=== PATIENT | female | born 1990 | race Caucasian/White ===

== ENCOUNTER 2016-07-31 18:54 | Emergency (ER) | payer OTHER ==
[2016-07-31] MEDS ORDERED: Lidocaine/EPINEPHrine/Tetracaine Soln 1 ML ONE (19:14)
[2016-07-31] MEDS ORDERED: Lidocaine 1% 20 ML MDV ONE (19:17)
[2016-07-31] MEDS ORDERED: Lidocaine 1% 20 ML MDV INJECT ONE (19:22)
[2016-07-31] MEDS ORDERED: Lidocaine/EPINEPHrine/Tetracaine Soln 1 ML TOP ONE (19:22)
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
[2016-07-31] MEDS ORDERED: Diphtheria,Pertussis(Acell),Tetanus Vaccine 0.5 ML Syringe IM ONE (20:59)
[2016-08-01 01:09] VITALS: BP 115/70
== END 2016-07-31 21:11 | disposition home or self-care (01) ==
LOC: MW.ED 18:54
DX: S31.41XA Laceration without foreign body of vagina and vulva, initial encounter (principal); Z90.49 Acquired absence of other specified parts of digestive tract; Z23 Encounter for immunization; Z79.2 Long term (current) use of antibiotics; Z79.899 Other long term (current) drug therapy; Z88.1 Allergy status to other antibiotic agents; Z88.2 Allergy status to sulfonamides; Z88.8 Allergy status to other drugs, medicaments and biological substances; V29.9XXA Motorcycle rider (driver) (passenger) injured in unspecified traffic accident, initial encounter; Y92.410 Unspecified street and highway as the place of occurrence of the external cause
CPT/HCPCS: 12001; 90471; 90715; 99283; 99283-25

== ENCOUNTER 2019-07-06 15:44 | Emergency (ER) | payer OTHER ==
[2019-07-06] MEDS ORDERED: Sodium Chloride 0.9% 1,000 ML IV ONE (16:14)
--- NOTE | 2019-07-06 16:27 | EDM.PDOC ---
ED HPI GENERAL MEDICAL PROBLEM - General Chief Complaint: LINE LEAD Problem Stated Complaint: VOMITING Time Seen by Provider: 07/06/19 16:22 Source of Information: Reports: Patient History Limitations: Reports: No Limitations - History of Present Illness INITIAL COMMENTS - FREE TEXT/NARRATIVE: This is a 29-year-old female presents to the emergency room chief complaint of hyperemesis gravidarum. Patient is 10 weeks states that all her pregnancies she has had problem with holding down fluids. 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) - Related Data Allergies Allergy/AdvReac Type Severity Reaction Status Date / Time doxycycline Allergy Rash Verified 07/06/19 16:00 ondansetron HCl [From Zofran] Allergy Rash Verified 07/06/19 16:00 sulfamethoxazole Allergy Hives Verified 07/06/19 16:00 [From Bactrim] trimethoprim [From Bactrim] Allergy Hives Verified 07/06/19 16:00 Home Meds: Home Meds Levothyroxine [Synthroid] 50 mcg PO DAILY 06/15/15 [History] Metoclopramide [Reglan] 0 mg PO Q6HR PRN 07/06/19 [History] Past Medical History HEENT History: Reports: Other (See Below) (h/o tonsillitis) Gastrointestinal History: Reports: None Genitourinary History: Reports: None LINE LEAD History: Reports: , Other (See Below) (septate uterus) Endocrine/Metabolic History: Reports: Hypothyroidism, Obesity/BMI 30+ Dermatologic History: Reports: None - Past Surgical History Head Surgeries/Procedures: Reports: None HEENT Surgical History: Reports: Oral Surgery Other HEENT Surgeries/Procedures: wisdom teeth extraction GI Surgical History: Reports: Appendectomy Female Surgical History: Reports: Section (x2) Other Female Surgeries/Procedures: c/section x2, surgery for vaginal septum Endocrine Surgical History: Reports: None Social & Family History - Family History Family Medical History: Noncontributory - Caffeine Use Caffeine Use: Reports: Coffee, Energy Drinks, Soda ED ROS GENERAL - Review of Systems Review Of Systems: See Below Constitutional: Reports: Malaise, Weakness HEENT: Reports: No Symptoms Respiratory: Reports: No Symptoms Cardiovascular: Reports: No Symptoms Endocrine: Reports: No Symptoms GI/Abdominal: Reports: Vomiting : Reports: No Symptoms Musculoskeletal: Reports: No Symptoms Skin: Reports: No Symptoms Neurological: Reports: No Symptoms Psychiatric: Reports: No Symptoms Hematologic/Lymphatic: Reports: No Symptoms Immunologic: Reports: No Symptoms ED EXAM - Physical Exam Exam: See Below Exam Limited By: No Limitations General Appearance: Alert, WD/WN, No Apparent Distress Eye Exam: Bilateral Eye: Normal Fundi, Normal Inspection Ears: Normal External Exam, Normal Canal Nose: Normal Inspection, Normal Mucosa, No Blood Throat/Mouth: Normal Inspection, Normal Lips, Normal Teeth, Normal Gums, Normal Oropharynx, Normal Voice, No Airway Compromise Head: Atraumatic, Normocephalic Neck: Normal Inspection, Supple, Non-Tender, Full Range of Motion Respiratory/Chest: No Respiratory Distress, Lungs Clear, Normal Breath Sounds, No Accessory Muscle Use, Chest Non-Tender Cardiovascular: Normal Peripheral Pulses, Regular Rate, Rhythm, No Edema, No JVD , No Murmur, No Rub GI/Abdominal Exam: Normal Bowel Sounds, Soft, Non-Tender, No Organomegaly, No Distention, No Abnormal Bruit, No Mass, Pelvis Stable Rectal Exam: Deferred Back Exam: Normal Inspection, Full Range of Motion Extremities: Normal Inspection, Normal Range of Motion, Non-Tender, No Pedal Edema, Normal Capillary Refill Neurological: Alert, Oriented, CN II-XII Intact, Normal Cognition, Normal Reflexes, No Motor/Sensory Deficits Psychiatric: Normal Affect, Normal Mood Skin Exam: Warm, Dry, Intact, Normal Color, No Rash Lymphatic: No Adenopathy Course - Vital Signs Text/Narrative:: This is a 29-year-old female who presents the emergency room with a chief complaint of vomiting for 3 days unable to keep anything down. Patient has a history of hyperemesis gravidarum. Patient has been given IV fluids in the emergency room labs are normal. Patient is to follow-up with her primary care physician she already has Reglan for the vomiting. Patient has been given multivitamins and thiamine in the emergency room her graph Assesment : Hyperemesis gravidarum Last Recorded V/S: Last Vital Signs Temp 98.2 F 07/06/19 15:55 Pulse 92 07/06/19 15:55 Resp 17 07/06/19 15:55 BP 123/83 07/06/19 15:55 Pulse Ox 97 07/06/19 15:55 - Orders/Labs/Meds Orders: Active Orders 24 hr Category Date Time Status MVI, Adult with Vitamin K [Infuvite Adult] 10 ml Med 07/06/19 17:05 Ordered Thiamine [Vitamin B-1] 100 mg Folic Acid 1 mg Sodium Chloride 0.9% [Normal Saline] 1,000 ml IV ONETIME Medication Orders Multivitamins/Minerals 10 ml/Thiamine HCl 100 mg/ Folic Acid 1 mg/ Sodium Chloride 1,011.2 mls @ 500 mls/hr IV ONETIME ONE Stop: 07/06/19 19:06 Last Admin: 07/06/19 17:40 Dose: 500 mls/hr Labs: Laboratory Tests 07/06/19 07/06/19 Range/Units 16:35 16:35 WBC 10.04 (4.0-11.0) K/uL RBC 4.76 (4.30-5.90) M/uL Hgb 13.5 (12.0-16.0) g/dL Hct 40.0 (36.0-46.0) % MCV 84.0 (80.0-98.0) fL MCH 28.4 (27.0-32.0) pg MCHC 33.8 (31.0-37.0) g/dL RDW Std Deviation 41.7 (28.0-62.0) fl RDW Coeff of Cristofer 14 (11.0-15.0) % Plt Count 308 (150-400) K/uL MPV 9.00 (7.40-12.00) fL Neut % (Auto) 72.2 (48.0-80.0) % Lymph % (Auto) 18.9 (16.0-40.0) % [place] % (Auto) 6.8 (0.0-15.0) % Eos % (Auto) 1.5 (0.0-7.0) % Baso % (Auto) 0.6 (0.0-1.5) % Neut # (Auto) 7.3 H (1.4-5.7) K/uL Lymph # (Auto) 1.9 (0.6-2.4) K/uL [place] # (Auto) 0.7 (0.0-0.8) K/uL Eos # (Auto) 0.2 (0.0-0.7) K/uL Baso # (Auto) 0.1 (0.0-0.1) K/uL Nucleated RBC % 0.0 /100WBC Nucleated RBCs # 0 K/uL Sodium 135 L (136-145) mmol/L Potassium 3.5 (3.5-5.1) mmol/L Chloride 100 (98-107) mmol/L Carbon Dioxide 25.1 (21.0-32.0) mmol/L BUN 7 (7.0-18.0) mg/dL Creatinine 0.7 (0.6-1.0) mg/dL Est Cr Clr Drug Dosing 85.94 mL/min Estimated GFR (MDRD) > 60.0 ml/min Glucose 82 (74-106) mg/dL Calcium 8.9 (8.5-10.1) mg/dL Total Bilirubin 0.5 (0.2-1.0) mg/dL AST 16 (15-37) IU/L ALT 13 L (14-63) IU/L Alkaline Phosphatase 61 (46-116) U/L Total Protein 7.1 (6.4-8.2) g/dL Albumin 3.3 L (3.4-5.0) g/dL Globulin 3.8 (2.6-4.0) g/dL Albumin/Globulin Ratio 0.9 (0.9-1.6) Meds: Medications Generic Name Dose Route Start Last Admin Trade Name Freq PRN Reason Stop Dose Admin Multivitamins/Minerals 10 ml/ 1,011.2 mls @ 500 mls/hr 07/06/19 17:05 17:40 Thiamine HCl 100 mg/ Folic IV 07/06/19 19:06 500 mls/hr Acid 1 mg/ Sodium Chloride ONETIME ONE Administration Discontinued Medications Generic Name Dose Route Start Last Admin Trade Name Freq PRN Reason Stop Dose Admin Sodium Chloride 1,000 mls @ 1,000 mls/hr 07/06/19 16:14 07/06/19 16:27 Normal Saline IV 07/06/19 17:13 1,000 mls/hr .Bolus ONE Administration Departure - Departure Time of Disposition: 18:22 Disposition: Home, Self-Care 01 Condition: Good Clinical Impression: Hyperemesis gravidarum - Discharge Information Instructions: Hyperemesis Gravidarum Referrals: Xochilt Manzano MD [Primary Care Provider] - Forms: ED Department Discharge Sepsis Event Note - Evaluation Sepsis Screening Result: No Definite Risk - Focused Exam Vital Signs: Vital Signs Temp Pulse Resp BP Pulse Ox 07/06/19 15:55 98.2 F 92 17 123/83 97 Date Exam was Performed: 07/06/19 Time Exam was Performed: 18:17 - My Orders Last 24 Hours: My Active Orders 07/06/19 17:05 MVI, Adult with Vitamin K [Infuvite Adult] 10 ml Thiamine [Vitamin B-1] 100 mg Folic Acid 1 mg Sodium Chloride 0.9% [Normal Saline] 1,000 ml IV ONETIME - Assessment/Plan Last 24 Hours: My Active Orders 07/06/19 17:05 MVI, Adult with Vitamin K [Infuvite Adult] 10 ml Thiamine [Vitamin B-1] 100 mg Folic Acid 1 mg Sodium Chloride 0.9% [Normal Saline] 1,000 ml IV ONETIME
[2019-07-06] MEDS ORDERED: MVI, Adult with Vitamin K 10 ML, Thiamine 100 MG, Folic Acid 1 MG in Sodium Chloride 0.... IV ONE ×4 (17:05)
[2019-07-06 17:18] LABS: BLOOD UREA NITROGEN,BUN 7 mg/dL (7.0-18.0); CARBON DIOXIDE,CO2 25.1 mmol/L (21.0-32.0); CHLORIDE,CL 100 mmol/L (98-107); GLUCOSE RANDOM 82 mg/dL (74-106); POTASSIUM,K 3.5 mmol/L (3.5-5.1); SODIUM,NA 135 mmol/L (136-145)
[2019-07-06 21:56] VITALS: BP 103/61; PULSE 79
== END 2019-07-06 20:34 | disposition home or self-care (01) ==
LOC: MW.ED 15:44
DX: O21.0 Mild hyperemesis gravidarum (principal); O99.281 Endocrine, nutritional and metabolic diseases complicating pregnancy, first trimester; E03.9 Hypothyroidism, unspecified; O99.211 Obesity complicating pregnancy, first trimester; Z68.31 Body mass index [BMI] 31.0-31.9, adult; Z88.1 Allergy status to other antibiotic agents; Z88.2 Allergy status to sulfonamides; Z88.8 Allergy status to other drugs, medicaments and biological substances; Z3A.10 10 weeks gestation of pregnancy
CPT/HCPCS: 36415; 80053; 85025; 96361; 96365; 96366; 99284; J3411; J7030; 99282

== ENCOUNTER 2019-12-27 16:55 | Inpatient (IN) | payer OTHER ==
[2019-12-27] MEDS ORDERED: Lactated Ringers 1,000 ML IV SCH ×3 (17:45→18:30)
[2019-12-27] MEDS ORDERED: Betamethasone Acetate/Betamethasone Sod Phosphate 30 MG/5 ML MDV ONE (18:06)
[2019-12-27] MEDS ORDERED: Betamethasone Acetate/Betamethasone Sod Phosphate 30 MG/5 ML MDV IM ONE (18:09)
[2019-12-27] MEDS ORDERED: Sodium Chloride 0.9% 10 ML SDV IV PRN ×2 (18:15→18:16)
[2019-12-27] MEDS ORDERED: Sodium Chloride 0.9% 10 ML Syringe FLUSH PRN ×2 (18:15→18:16)
[2019-12-27] MEDS ORDERED: Citric Acid/Sodium Citrate Solution 30 ML Cup PO ONE ×2 (18:15→18:16)
[2019-12-27] MEDS ORDERED: Oxytocin/0.9 % Sodium Chloride 30 UNIT/500 ML BAG IV SCH ×2 (18:15→18:30)
[2019-12-27] MEDS ORDERED: Sodium Chloride 0.9% 2.5 ML Syringe FLUSH PRN ×2 (18:15→18:16)
[2019-12-27] MEDS ORDERED: ceFAZolin 2 GM in Premix Bag 1 BAG IV ONE (18:16)
--- NOTE | 2019-12-27 18:16 | PCM.LDHP ---
L&D History of Present Illness - General Date of Service: 12/27/19 Admit Problem/Dx: Patient Status Order with Admit Dx/Problem 12/27/19 16:50 Patient Status [ADT] Routine Admission Diagnosis/Problem Admission Diagnosis/Problem 12/27/19 18:26 labor Source of Information: Patient History Limitations: Reports: No Limitations - History of Present Illness Present Illness Comments:: 29 year old at 34w6d (AYLA 02/01/2020 by LMP) presented to labor and delivery in the early evening of 12/27/2019 with contractions. Patient has a history of sections x2 and her last delivery was at 35wga. States that she started having contractions at about 0930 this morning and they were q6-8 minutes just prior to arriving at L&D. has been complicated by a complete septate uterus and hypothyroidism. Denies leaking fluid or vaginal bleeding. Reports good movement. - Related Data Allergies/Adverse Reactions: Allergies Allergy/AdvReac Type Severity Reaction Status Date / Time doxycycline Allergy Rash Verified 12/27/19 18:08 levothyroxine Allergy Rash Verified 12/27/19 18:08 ondansetron HCl [From Zofran] Allergy Rash Verified 12/27/19 18:08 sulfamethoxazole Allergy Hives Verified 12/27/19 18:08 [From Bactrim] trimethoprim [From Bactrim] Allergy Hives Verified 12/27/19 18:08 Home Medications: Home Meds Levothyroxine [Synthroid] 50 mcg PO DAILY 06/15/15 [History] Metoclopramide [Reglan] 0 mg PO Q6HR PRN 07/06/19 [History] Hydroxyprogesterone Caproat/Pf [Gail 275 mg/1.1 ml Autoinjct] 1 ea SUBCUT WEEKLY 11/23/19 [History] Levothyroxine [Synthroid] 1 tab PO DAILY 11/23/19 [History] Pnv No.95/Ferrous Fum/Folic AC [ Vitamin Tablet] 1 tab PO DAILY 11/23/19 [History] Past Medical History HEENT History: Reports: Other (See Below) (h/o tonsillitis) Gastrointestinal History: Reports: None Genitourinary History: Reports: None 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: , Other (See Below) (septate uterus) Other OB/BYN History: 2 miscarriages Endocrine/Metabolic History: Reports: Hypothyroidism, Obesity/BMI 30+ Dermatologic History: Reports: None - Past Surgical History Head Surgeries/Procedures: Reports: None HEENT Surgical History: Reports: Oral Surgery Other HEENT Surgeries/Procedures: wisdom teeth extraction GI Surgical History: Reports: Appendectomy Female Surgical History: Reports: Section (x2) Other Female Surgeries/Procedures: c/section x2, surgery for vaginal septum Endocrine Surgical History: Reports: None Social & Family History - Family History Family Medical History: Noncontributory - Caffeine Use Caffeine Use: Reports: Coffee, Energy Drinks, Soda H&P Review of Systems - Review of Systems: Review Of Systems: See Below General: Reports: No Symptoms HEENT: Reports: No Symptoms Pulmonary: Reports: No Symptoms Cardiovascular: Reports: No Symptoms Gastrointestinal: Reports: Abdominal Pain () Genitourinary: Reports: No Symptoms Skin: Reports: No Symptoms Psychiatric: Reports: No Symptoms Neurological: Reports: No Symptoms Hematologic/Lymphatic: Reports: No Symptoms Immunologic: Reports: No Symptoms L&D Exam - Exam Exam: See Below - Vital Signs Weight: 161 lb - OB Specific Contraction Intensity: Mild to Moderate Movement: Active Heart Tones: Present Heart Tones per Min: 135 Heart Rate (FHR) Variability: Moderate (6-25 bmp) Presentation: Vertex - Garcia Score Garcia Score Cervix Position: Anterior Garcia Score Consistency: Soft Garcia Score Effacement: >80% Garcia Score Dilation: > 5 cm Garcia Score 's Station: -2 Garcia Score Total: 11 - Exam General: Alert, Oriented Lungs: Normal Respiratory Effort Cardiovascular: Regular Rate GI/Abdominal Exam: Soft, Non-Tender Rectal Exam: Deferred Genitourinary: Other (SVE: 5-6/80/-2, vertex) Extremities: Normal Inspection Skin: Warm, Dry, Intact Neurological: Cranial Nerves Intact Psychiatric: Alert, Normal Affect - Patient Data Lab Results Last 24 hrs: Laboratory Results - last 24 hr 12/27/19 Range/Units 17:55 WBC 12.54 H (4.0-11.0) K/uL RBC 4.68 (4.30-5.90) M/uL Hgb 12.7 (12.0-16.0) g/dL Hct 38.7 (36.0-46.0) % MCV 82.7 (80.0-98.0) fL MCH 27.1 (27.0-32.0) pg MCHC 32.8 (31.0-37.0) g/dL RDW Std Deviation 40.9 (28.0-62.0) fl RDW Coeff of Cristofer 14 (11.0-15.0) % Plt Count 269 (150-400) K/uL MPV 10.50 (7.40-12.00) fL Nucleated RBC % 0.0 /100WBC Nucleated RBCs # 0 K/uL Result Diagrams: 12/27/19 17:55 Problem List Initiated/Reviewed/Updated: Yes Orders Last 24hrs: Active Orders 24 hr Category Date Time Status Patient Status [ADT] Routine ADT 12/27/19 16:50 Active Non Stress Test [RC] PER UNIT ROUTINE Care 12/27/19 17:14 Active Up ad Jasmyn [RC] ASDIRECTED Care 12/27/19 17:14 Active Vaginal Exam [RC] Click to Edit Care 12/27/19 17:14 Active Vital Signs [RC] PER UNIT ROUTINE Care 12/27/19 17:14 Active CORONAVIRUS COVID-19 PCR PHL Stat Lab 12/27/19 18:13 Ordered TYPE AND SCREEN [BBK] Routine Lab 12/27/19 17:55 Received Lactated Ringers [Ringers, Lactated] 1,000 ml Med 12/27/19 17:45 Active IV ASDIRECTED Resuscitation Status Routine Resus Stat 12/27/19 17:14 Ordered Medication Orders Lactated Ringer's (Ringers, Lactated) 1,000 mls @ 999 mls/hr IV ASDIRECTED MICHAELA Last Admin: 12/27/19 17:50 Dose: 999 mls/hr Documented by: ARIELLA Assessment/Plan Comment:: 29 year old at 34w6d (AYLA 02/01/2020 by LMP) with labor and advanced dilation labor * SVE 5-6/80/-2, vertex. Intact. * Patient artemio q1-3 minutes, mild to palpation. * History of section x2, will need repeat section. Due to adva nced dilation and continued contractions, patient not a candidate for transfer to higher level of care for infant. Discussed diagnosis of active labor with patient and advised for repeat section this evening. Risks of the procedure discussed including infection, bleeding with rare need for blood transfusion or hysterectomy, injury to surrounding structures with need for additional procedures and remote risk of maternal/ . Questions elicited and answered. Discussed case with greenhouse florist, anesthesia and special education professor. Plan to administer betamethasone injection x1 prior to delivery. GBS unknown, lab collected upon arrival. Prophylactic antibiotics ordered. COVID-19 testing performed and pending. Patient denies recent symptoms. heart tones reassuring. Plan to proceed with repeat lower transverse section at this time.
[2019-12-27] MEDS ORDERED: Azithromycin 500 MG in Sodium Chloride 0.9% 250 ML IV ONE (18:25)
[2019-12-27] MEDS ORDERED: Propofol 200 MG/20 ML SDV ONE (18:31)
[2019-12-27] MEDS ORDERED: Oxytocin 10 Units/1 ML SDV ONE (18:38)
[2019-12-27] MEDS ORDERED: ePHEDrine 50 MG/ML SDV ONE (18:38)
[2019-12-27] MEDS ORDERED: Morphine PF 10 MG/10 ML SDV ONE (18:41)
--- NOTE | 2019-12-27 19:03 | PCM.PREANE ---
Preanesthetic Assessment - Anesthesia/Transfusion/Family Hx Anesthesia History: Prior Anesthesia Without Reaction Family History of Anesthesia Reaction: No Transfusion History: No Prior Transfusion(s) Intubation History: Unknown - Review of Systems General: No Symptoms Pulmonary: No Symptoms Cardiovascular: No Symptoms Gastrointestinal: Abdominal Pain Neurological: No Symptoms Other: Reports: None - Physical Assessment NPO Status Date: 12/27/19 Height: 4 ft 11 in Weight: 73.028 kg ASA Class: 2 Mental Status: Alert & Oriented x3 Airway Class: Mallampati = 2 Dentition: Reports: Normal Dentition ROM/Head Extension: Full Lungs: Clear to Auscultation, Normal Respiratory Effort Cardiovascular: Regular Rate, Regular Rhythm - Lab Values: Laboratory Last Values WBC 12.54 K/uL (4.0-11.0) H 12/27/19 17:55 RBC 4.68 M/uL (4.30-5.90) 12/27/19 17:55 Hgb 12.7 g/dL (12.0-16.0) 12/27/19 17:55 Hct 38.7 % (36.0-46.0) 12/27/19 17:55 MCV 82.7 fL (80.0-98.0) 12/27/19 17:55 MCH 27.1 pg (27.0-32.0) 12/27/19 17:55 MCHC 32.8 g/dL (31.0-37.0) 12/27/19 17:55 RDW Std Deviation 40.9 fl (28.0-62.0) 12/27/19 17:55 RDW Coeff of Cristofer 14 % (11.0-15.0) 12/27/19 17:55 Plt Count 269 K/uL (150-400) 12/27/19 17:55 MPV 10.50 fL (7.40-12.00) 12/27/19 17:55 Nucleated RBC % 0.0 /100WBC 12/27/19 17:55 Nucleated RBCs # 0 K/uL 12/27/19 17:55 Blood Type A POSITIVE 12/27/19 17:55 Antibody Screen NEGATIVE 12/27/19 17:55 - Allergies Allergies/Adverse Reactions: Allergies Allergy/AdvReac Type Severity Reaction Status Date / Time doxycycline Allergy Rash Verified 12/27/19 18:08 levothyroxine Allergy Rash Verified 12/27/19 18:08 ondansetron HCl [From Zofran] Allergy Rash Verified 12/27/19 18:08 sulfamethoxazole Allergy Hives Verified 12/27/19 18:08 [From Bactrim] trimethoprim [From Bactrim] Allergy Hives Verified 12/27/19 18:08 - Blood Blood Available: No - Anesthesia Plan Pre-Op Medication Ordered: None - Acknowledgements Anesthesia Type Planned: Spinal Pt an Appropriate Candidate for the Planned Anesthesia: Yes Alternatives and Risks of Anesthesia Discussed w Pt/Guardian: Yes Pt/Guardian Understands and Agrees with Anesthesia Plan: Yes PreAnesthesia Questionnaire - Past Health History Medical/Surgical History: Denies Medical/Surgical History HEENT History: Reports: Other (See Below) (h/o tonsillitis) Gastrointestinal History: Reports: None Genitourinary History: Reports: None 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: , Other (See Below) (septate uterus) Other OB/BYN History: 2 miscarriages Endocrine/Metabolic History: Reports: Hypothyroidism, Obesity/BMI 30+ Dermatologic History: Reports: None - Past Surgical History Head Surgeries/Procedures: Reports: None HEENT Surgical History: Reports: Oral Surgery Other HEENT Surgeries/Procedures: wisdom teeth extraction GI Surgical History: Reports: Appendectomy Female Surgical History: Reports: Section (x2) Other Female Surgeries/Procedures: c/section x2, surgery for vaginal septum Endocrine Surgical History: Reports: None - HOME MEDS Home Medications: Home Meds Levothyroxine [Synthroid] 50 mcg PO DAILY 06/15/15 [History] Metoclopramide [Reglan] 0 mg PO Q6HR PRN 07/06/19 [History] Hydroxyprogesterone Caproat/Pf [Brogan 275 mg/1.1 ml Autoinjct] 1 ea SUBCUT WEEKLY 11/23/19 [History] Levothyroxine [Synthroid] 1 tab PO DAILY 11/23/19 [History] Pnv No.95/Ferrous Fum/Folic AC [ Vitamin Tablet] 1 tab PO DAILY 11/23/19 [History] - CURRENT (IN HOUSE) MEDS Current Meds: Current Medications Lactated Ringer's (Ringers, Lactated) 1,000 mls @ 999 mls/hr IV ASDIRECTED MICHAELA Last Admin: 12/27/19 17:50 Dose: 999 mls/hr Documented by: Lactated Ringer's (Ringers, Lactated) 1,000 mls @ 500 mls/hr IV BOLUS MICHAELA Oxytocin/Sodium Chloride (Oxytocin 30 Unit/500 Ml-Ns) 30 unit in 500 mls @ 250 mls/hr IV TITRATE MICHAELA Lactated Ringer's (Ringers, Lactated) 1,000 mls @ 500 mls/hr IV BOLUS MICHAELA Last Admin: 12/27/19 18:59 Dose: 500 mls/hr Documented by: Oxytocin/Sodium Chloride (Oxytocin 30 Unit/500 Ml-Ns) 30 unit in 500 mls @ 250 mls/hr IV TITRATE MICHAELA Azithromycin 500 mg/ Sodium (Chloride) 250 mls @ 250 mls/hr IV ONETIME ONE Stop: 12/27/19 19:24 Sodium Chloride (Saline Flush) 10 ml FLUSH ASDIRECTED PRN PRN Reason: Keep Vein Open Sodium Chloride (Saline Flush) 2.5 ml FLUSH ASDIRECTED PRN PRN Reason: Keep Vein Open Sodium Chloride (Normal Saline) 10 ml IV ASDIRECTED PRN PRN Reason: IV Use Sodium Chloride (Saline Flush) 10 ml FLUSH ASDIRECTED PRN PRN Reason: Keep Vein Open Sodium Chloride (Saline Flush) 2.5 ml FLUSH ASDIRECTED PRN PRN Reason: Keep Vein Open Sodium Chloride (Normal Saline) 10 ml IV ASDIRECTED PRN PRN Reason: IV Use Discontinued Medications Betamethasone Acet/Betameth SodPhos (Celestone Soluspan 6 Mg/Ml) Confirm Administered Dose 30 mg .ROUTE .STK-MED ONE Stop: 12/27/19 18:07 Betamethasone Acet/Betameth SodPhos (Celestone Soluspan 6 Mg/Ml) 12 mg IM ONETIME ONE Stop: 12/27/19 18:10 Last Admin: 12/27/19 18:22 Dose: 12 mg Documented by: Citric Acid/Sodium Citrate (Bicitra Solution) 30 ml PO ONETIME ONE Stop: 12/27/19 18:16 Citric Acid/Sodium Citrate (Bicitra Solution) 30 ml PO ONETIME ONE Stop: 12/27/19 18:17 Ephedrine Sulfate (Ephedrine Sulfate) Confirm Administered Dose 100 mg .ROUTE .STK-MED ONE Stop: 12/27/19 18:39 Cefazolin Sodium/Dextrose 2 gm (/ Premix) 50 mls @ 100 mls/hr IV ONETIME ONE Stop: 12/27/19 18:45 Acetaminophen (Ofirmev) Confirm Administered Dose 100 mls @ as directed .ROUTE .STK-MED ONE Stop: 12/27/19 18:30 Morphine Sulfate (Duramorph Pf) Confirm Administered Dose 10 mg .ROUTE .STK-MED ONE Stop: 12/27/19 18:42 Oxytocin (Pitocin) Confirm Administered Dose 30 unit .ROUTE .STK-MED ONE Stop: 12/27/19 18:39 Propofol (Diprivan 20 Ml) Confirm Administered Dose 200 mg .ROUTE .STK-MED ONE Stop: 12/27/19 18:32
[2019-12-27] MEDS ORDERED: fentaNYL 100 MCG/2 ML SDV IVPUSH PRN (19:04)
[2019-12-27] MEDS ORDERED: Nalbuphine 10 MG/1 ML Vial IVPUSH PRN (19:04)
[2019-12-27] MEDS ORDERED: Acetaminophen/oxyCODONE 325-5 MG Tab PO PRN (19:04)
[2019-12-27] MEDS ORDERED: Octyl 2-Cyanoacrylate 1 Tube ONE (20:14)
[2019-12-27] MEDS ORDERED: diphenhydrAMINE 50 MG/ML SDV IVPUSH PRN (20:38)
[2019-12-27] MEDS ORDERED: Tranexamic Acid 1,000 MG in Sodium Chloride 0.9% 100 ML IV PRN (20:38)
[2019-12-27] MEDS ORDERED: Lanolin 100% Cream 7 GM Tube TOP PRN (20:38)
[2019-12-27] MEDS ORDERED: Oxytocin 10 Units/1 ML SDV IM PRN (20:38)
[2019-12-27] MEDS ORDERED: Misoprostol 200 MCG Tab RECTAL PRN (20:38)
[2019-12-27] MEDS ORDERED: Simethicone 80 MG Tab.Chew PO PRN (20:38)
[2019-12-27] MEDS ORDERED: Bisacodyl 10 MG Supp RECTAL PRN (20:38)
[2019-12-27] MEDS ORDERED: Methylergonovine 0.2 MG/1 ML Amp IM PRN (20:38)
[2019-12-27] MEDS ORDERED: Metoclopramide 10 MG/2 ML SDV IVPUSH PRN (20:43)
--- NOTE | 2019-12-27 20:44 | PCM.OPNOTE ---
- General Post-Op/Procedure Note Date of Surgery/Procedure: 12/27/19 Operative Procedure(s): Repeat lower transverse section Findings: Normal appearing male in cephalic presentation. Clear amniotic fluid. APGARs 8/8. Weight 2570 grams. Complete uterine septum down to cervix. Normal appearing bilateral fallopian tubes and ovaries. Pre Op Diagnosis: 1. 34w6d intrauterine . 2. labor with advanced dilation. 3. Complete uterine septum. 4. Previous history of section x2. 5. Hypothyroidism Post-Op Diagnosis: Same Anesthesia Technique: Spinal Primary Surgeon: Mariama Ryder Anesthesia Provider: Froy Alejandro Split Fluid Replacement, Intraop: 1,000 (crystalloid) Output, Urine Amount: 175 (clear urine at the end of procedure) EBL in mLs: 500 Complications: None known Condition: Good Free Text/Narrative:: Intake & Output 12/27/19 12/27/19 12/27/19 06:59 14:59 22:59 Output Total 150 Balance -150
--- NOTE | 2019-12-27 21:09 | PCM.POSTAN ---
POST ANESTHESIA ASSESSMENT - MENTAL STATUS Mental Status: Alert - RESPIRATORY Respiratory Status: Respiratory Rate WNL - CARDIOVASCULAR CV Status: Pulse Rate WNL - GASTROINTESTINAL GI Status: No Symptoms - PAIN Pain Score: 0 (Block regressing) - POST OP HYDRATION Hydration Status: Adequate & Stable - OBSERVATIONS Free Text/Narrative:: Doing well. VSS. No problems noted.
[2019-12-27] MEDS: Docusate Sodium 100 MG Cap PO SCH (21:22)
[2019-12-27] MEDS: Ketorolac 30 MG/ML SDV IVPUSH SCH (21:42)
[2019-12-27] MEDS: Lactated Ringers 1,000 ML IV SCH (22:24)
[2019-12-27] MEDS: Acetaminophen/HYDROcodone 325-5 MG Tab PO PRN (23:22)
--- NOTE | 2019-12-27 23:37 | OR ---
SURGEON: MARIAMA VU MD DATE OF PROCEDURE: 12/27/2019 PREOPERATIVE DIAGNOSES: 1. A 34-week 6-day intrauterine . 2. labor with advanced dilation. 3. Complete uterine septum. 4. Previous history of sections x2. 5. Hypothyroidism. POSTOPERATIVE DIAGNOSES: 1. A 34-week 6-day intrauterine . 2. labor with advanced dilation. 3. Complete uterine septum. 4. Previous history of sections x2. 5. Hypothyroidism. PROCEDURE: Repeat lower transverse section. PRIMARY SURGEON: Mariama Vu MD ANESTHESIA: Spinal. COMPLICATIONS: None known. ESTIMATED BLOOD LOSS: 500 mL. INTRAVENOUS FLUIDS: 1000 mL of crystalloid intraoperative. The patient received a 1000 mL bolus prior to the procedure. URINE OUTPUT: 175 mL of clear urine at the end of the procedure. INDICATIONS: A 29-year-old 5, para 1-1-2-2, at 34 weeks and 6 days, presented to Labor and Delivery with complaints of contractions throughout the day. Upon cervical exam, the cervix was noted to be 5 to 6 cm dilated, 80% effaced, and -2 station with the fetus in a vertex presentation. The patient was noted to be artemio every 1 to 3 minutes and in active labor. The patient had a previous history of sections x2. FINDINGS: A normal-appearing male infant, cephalic presentation, clear amniotic fluid, scores 8 and 8, weight 2570 g; complete uterine septum down to the cervix; and normal-appearing bilateral fallopian tubes and ovaries. PROCEDURE IN DETAIL: The patient was taken to the operating, where epidural anesthesia was found to be adequate. She was prepped and draped in the normal sterile fashion in the dorsal supine position with a leftward tilt. The patient's previous surgical Pfannenstiel scar was excised and incision carried out to the underlying layer of fascia, which was incised in the midline. The fascial incision was then extended bilaterally with Haque scissors. The superior aspect of the fascial incision was then grasped with Roberto clamps, elevated, and dissected off the rectus muscles with Stephanie. The inferior aspect of the fascial incision was grasped with Kochers and in a likewise manner was elevated and dissected off with Mayos. The peritoneum was then entered digitally and extended with good visualization of the bladder. A large Jayson O-Ring was then inserted into the abdominal cavity. A uterine incision was created in a transverse fashion in the lower uterine segment with a scalpel and extended digitally. The amniotic sac was artificially ruptured with an Allis clamp. Clear fluid was noted. The 's head readily delivered atraumatically. Nose and mouth were suctioned with a bulb. After a delay, the cord was clamped and cut, and handed off to the waiting nursing staff along with Dr. Helena Cordero, life consultant, who attended the delivery. Cord gases were obtained. The placenta was then expressed and the uterus exteriorized in the abdomen and cleared of all clots and debris. Findings were noted as above. The uterine incision was then repaired in a running locked fashion with 0 Monocryl. A second suture of the same was used to imbricate the incision. Excellent hemostasis was noted. Irrigation of the abdominal cavity was then performed. The uterus was then returned to the abdomen. Gutters were cleared of all clots and debris. The Jayson O device was then removed. The peritoneum and rectus muscles were then loosely reapproximated in a running fashion with 3-0 Vicryl. The fascia was then closed with 0 Vicryl in a running fashion. The incision was irrigated, and hemostasis was assured. The subcutaneous tissue was closed with 3-0 plain gut. The skin was closed with 3-0 Vicryl on a Niall needle along with Dermabond glue. Sponge, lap, and needle counts were correct x2. 2 g of Ancef was given prior to the procedure. The patient was taken to the Labor and Delivery room for recovery in stable condition. As of this time, plan for a transfer of the infant was made due to increased requirement of oxygen. The life consultant coordinating with the NICU team for transfer at this time. ELISHA MINA /[id number] REED
[2019-12-28] MEDS: Ketorolac 30 MG/ML SDV IVPUSH SCH ×4 (04:20→22:15)
[2019-12-28] MEDS: Lactated Ringers 1,000 ML IV SCH (04:21)
--- NOTE | 2019-12-28 07:45 | PCM48HPAN ---
Post Anesthesia Note - EVALUATION WITHIN 48HRS OF ANESTHETIC Vital Signs in Normal Range: Yes Patient Participated in Evaluation: Yes Respiratory Function Stable: Yes Airway Patent: Yes Cardiovascular Function Stable: Yes Hydration Status Stable: Yes Pain Control Satisfactory: Yes Nausea and Vomiting Control Satisfactory: Yes Mental Status Recovered: Yes Vital Signs: Last Vital Signs Temp 36.1 C 12/28/19 04:00 Pulse 61 12/28/19 06:00 Resp 15 12/28/19 06:00 BP 115/64 12/28/19 04:00 Pulse Ox 94 L 12/28/19 06:00
--- NOTE | 2019-12-28 08:52 | PCM.PNPP ---
- General Info Date of Service: 12/28/19 Functional Status: Reports: Pain Controlled, Tolerating Diet, Ambulating, Urinating - Review of Systems General: Reports: No Symptoms HEENT: Reports: No Symptoms Pulmonary: Reports: No Symptoms Cardiovascular: Reports: No Symptoms Gastrointestinal: Reports: No Symptoms Genitourinary: Reports: No Symptoms Musculoskeletal: Reports: No Symptoms Skin: Reports: No Symptoms Neurological: Reports: No Symptoms Psychiatric: Reports: No Symptoms - Patient Data Vital Signs - Most Recent: Last Vital Signs Temp 36.1 C 12/28/19 04:00 Pulse 61 12/28/19 06:00 Resp 15 12/28/19 07:00 BP 115/64 12/28/19 04:00 Pulse Ox 94 L 12/28/19 07:00 Weight - Most Recent: 161 lb I&O - Last 24 Hours: Intake & Output 12/27/19 12/28/19 12/28/19 22:59 06:59 14:59 Intake Total 1000 Output Total 350 1400 Balance 650 -1400 Lab Results - Last 24 Hours: Laboratory Results - last 24 hr 12/27/19 12/27/19 12/27/19 Range/Units 17:55 17:55 18:10 WBC 12.54 H (4.0-11.0) K/uL RBC 4.68 (4.30-5.90) M/uL Hgb 12.7 (12.0-16.0) g/dL Hct 38.7 (36.0-46.0) % MCV 82.7 (80.0-98.0) fL MCH 27.1 (27.0-32.0) pg MCHC 32.8 (31.0-37.0) g/dL RDW Std Deviation 40.9 (28.0-62.0) fl RDW Coeff of Cristofer 14 (11.0-15.0) % Plt Count 269 (150-400) K/uL MPV 10.50 (7.40-12.00) fL Nucleated RBC % 0.0 /100WBC Nucleated RBCs # 0 K/uL SARS-CoV-2 RNA (JANINE) NEGATIVE (NEGATIVE) Blood Type A POSITIVE Antibody Screen NEGATIVE 12/28/19 Range/Units 05:48 WBC (4.0-11.0) K/uL RBC (4.30-5.90) M/uL Hgb 11.4 L (12.0-16.0) g/dL Hct 35.2 L (36.0-46.0) % MCV (80.0-98.0) fL MCH (27.0-32.0) pg MCHC (31.0-37.0) g/dL RDW Std Deviation (28.0-62.0) fl RDW Coeff of Cristofer (11.0-15.0) % Plt Count (150-400) K/uL MPV (7.40-12.00) fL Nucleated RBC % /100WBC Nucleated RBCs # K/uL SARS-CoV-2 RNA (JANINE) (NEGATIVE) Blood Type Antibody Screen Med Orders - Current: Current Medications Hydrocodone Bitart/Acetaminophen ([place] 325-5 Mg) 1 tab PO Q4H PRN PRN Reason: Pain (moderate 4-6) Last Admin: 12/27/19 23:22 Dose: 1 tab Documented by: Bisacodyl (Dulcolax) 10 mg RECTAL ONETIME PRN PRN Reason: Constipation Diphenhydramine HCl (Benadryl) 25 mg IVPUSH Q6H PRN PRN Reason: Itching or Nausea Docusate Sodium (Colace) 100 mg PO BID [facility] Last Admin: 12/27/19 21:22 Dose: Not Given Documented by: Emollient Ointment (Lansinoh Hpa) 0 gm TOP ASDIRECTED PRN PRN Reason: Sore Nipples Fentanyl (Sublimaze) 50 mcg IVPUSH Q5M PRN PRN Reason: Pain (severe 7-10) Stop: 12/28/19 19:04 Lactated Ringer's (Ringers, Lactated) 1,000 mls @ 999 mls/hr IV ASDIRECTED [facility] Last Admin: 12/27/19 17:50 Dose: 999 mls/hr Documented by: Lactated Ringer's (Ringers, Lactated) 1,000 mls @ 500 mls/hr IV BOLUS [facility] Oxytocin/Sodium Chloride (Oxytocin 30 Unit/500 Ml-Ns) 30 unit in 500 mls @ 250 mls/hr IV TITRATE MICHAELA Lactated Ringer's (Ringers, Lactated) 1,000 mls @ 500 mls/hr IV BOLUS [facility] Last Admin: 12/27/19 18:59 Dose: 500 mls/hr Documented by: Oxytocin/Sodium Chloride (Oxytocin 30 Unit/500 Ml-Ns) 30 unit in 500 mls @ 250 mls/hr IV TITRATE [facility] Lactated Ringer's (Ringers, Lactated) 1,000 mls @ 125 mls/hr IV ASDIRECTED MICHAELA Last Admin: 12/28/19 04:21 Dose: 125 mls/hr Documented by: Tranexamic Acid 1,000 mg/ (Sodium Chloride) 110 mls @ 660 mls/hr IV ONETIME PRN PRN Reason: Bleeding Ibuprofen (Motrin) 800 mg PO Q8H PRN PRN Reason: mild pain or fever Ketorolac Tromethamine (Toradol) 30 mg IVPUSH Q6H [facility] Stop: 12/28/19 21:31 Last Admin: 12/28/19 04:20 Dose: 30 mg Documented by: Methylergonovine Maleate (Methergine) 0.2 mg IM ONETIME PRN PRN Reason: Excessive Vaginal Bleeding Metoclopramide HCl (Reglan) 10 mg IVPUSH Q6H PRN PRN Reason: Nausea/Vomiting Misoprostol (Cytotec) 1,000 mcg RECTAL ONETIME PRN PRN Reason: excessive bleeding Nalbuphine HCl (Nubain) 2.5 mg IVPUSH Q3H PRN PRN Reason: Pruritis Stop: 12/28/19 19:04 Oxycodone/Acetaminophen (Percocet 325-5 Mg) 1 tab PO ONETIME PRN PRN Reason: Pain (moderate 4-6) Oxytocin (Pitocin) 10 unit IM ASDIRECTED PRN PRN Reason: Excessive Vaginal Bleeding Simethicone (Simethicone) 80 mg PO Q4H PRN PRN Reason: Gas Last Admin: 12/28/19 02:29 Dose: 80 mg Documented by: Sodium Chloride (Saline Flush) 10 ml FLUSH ASDIRECTED PRN PRN Reason: Keep Vein Open Sodium Chloride (Saline Flush) 2.5 ml FLUSH ASDIRECTED PRN PRN Reason: Keep Vein Open Sodium Chloride (Normal Saline) 10 ml IV ASDIRECTED PRN PRN Reason: IV Use Sodium Chloride (Saline Flush) 10 ml FLUSH ASDIRECTED PRN PRN Reason: Keep Vein Open Sodium Chloride (Saline Flush) 2.5 ml FLUSH ASDIRECTED PRN PRN Reason: Keep Vein Open Sodium Chloride (Normal Saline) 10 ml IV ASDIRECTED PRN PRN Reason: IV Use Discontinued Medications Betamethasone Acet/Betameth SodPhos (Celestone Soluspan 6 Mg/Ml) Confirm Administered Dose 30 mg .ROUTE .STK-MED ONE Stop: 12/27/19 18:07 Last Admin: 12/27/19 21:29 Dose: Not Given Documented by: Betamethasone Acet/Betameth SodPhos (Celestone Soluspan 6 Mg/Ml) 12 mg IM ONETIME ONE Stop: 12/27/19 18:10 Last Admin: 12/27/19 18:22 Dose: 12 mg Documented by: Citric Acid/Sodium Citrate (Bicitra Solution) 30 ml PO ONETIME ONE Stop: 12/27/19 18:16 Citric Acid/Sodium Citrate (Bicitra Solution) 30 ml PO ONETIME ONE Stop: 12/27/19 18:17 Ephedrine Sulfate (Ephedrine Sulfate) Confirm Administered Dose 100 mg .ROUTE .STK-MED ONE Stop: 12/27/19 18:39 Cefazolin Sodium/Dextrose 2 gm (/ Premix) 50 mls @ 100 mls/hr IV ONETIME ONE Stop: 12/27/19 18:45 Last Admin: 12/27/19 21:29 Dose: Not Given Documented by: Azithromycin 500 mg/ Sodium (Chloride) 250 mls @ 250 mls/hr IV ONETIME ONE Stop: 12/27/19 19:24 Last Admin: 12/27/19 21:34 Dose: Not Given Documented by: Acetaminophen (Ofirmev) Confirm Administered Dose 100 mls @ as directed .ROUTE .STK-MED ONE Stop: 12/27/19 18:30 Last Admin: 12/27/19 21:29 Dose: Not Given Documented by: Morphine Sulfate (Duramorph Pf) Confirm Administered Dose 10 mg .ROUTE .STK-MED ONE Stop: 12/27/19 18:42 Octyl Cyanoacrylate (Dermabond Advance) Confirm Administered Dose 1 applic .ROUTE .STK-MED ONE Stop: 12/27/19 20:15 Oxytocin (Pitocin) Confirm Administered Dose 30 unit .ROUTE .STK-MED ONE Stop: 12/27/19 18:39 Propofol (Diprivan 20 Ml) Confirm Administered Dose 200 mg .ROUTE .STK-MED ONE Stop: 12/27/19 18:32 - Infant Interaction Infant Disposition, : Not Applicable - Recovery Exam Fundal Tone: Firm Fundal Level: At Umbilicus Fundal Placement: Midline Lochia Amount: Scant Lochia Color: Rubra/Red Perineum Description: Intact, Minimal Bruising/Swelling Episiotomy/Laceration: None Bladder Status: Indwelling Catheter in Place Urinary Elimination: Indwelling Catheter - Exam General: Alert, Oriented, Cooperative, No Acute Distress HEENT: Pupils Equal, Pupils Reactive Neck: Supple, Trachea Midline, No JVD Lungs: Normal Respiratory Effort GI/Abdominal Exam: Soft, Non-Tender, No Organomegaly, No Distention Extremities: Normal Inspection, Normal Range of Motion, Non-Tender, No Pedal Edema Skin: Warm, Dry, Intact Wound/Incisions: Dressing Dry and Intact Neurological: No New Focal Deficit Psy/Mental Status: Alert, Normal Affect, Normal Mood - Problem List Review Problem List Initiated/Reviewed/Updated: Yes - Assessment Assessment:: 29 year old POD1 s/p repeat LTCS due to labor. Stable and recovering well. - Plan Plan:: - vitals stable Hgb 11.4 today, bleeding light, no s/s of anemia Baby in NICU in [place] Plan to remove green this AM Anticipate discharge POD2
[2019-12-28] MEDS: Docusate Sodium 100 MG Cap PO SCH ×2 (09:26→21:41)
[2019-12-29] MEDS ORDERED: Ibuprofen 800 MG Tab PO PRN (03:30)
[2019-12-29 08:59] VITALS: BP 128/81; PULSE 86
--- NOTE | 2019-12-29 09:29 | PCM.PNPP ---
- General Info Date of Service: 12/29/19 Functional Status: Reports: Pain Controlled, Tolerating Diet, Ambulating, Urinating - Review of Systems General: Reports: No Symptoms HEENT: Reports: No Symptoms Pulmonary: Reports: No Symptoms Cardiovascular: Reports: No Symptoms Gastrointestinal: Reports: No Symptoms Genitourinary: Reports: No Symptoms Musculoskeletal: Reports: No Symptoms Skin: Reports: No Symptoms Neurological: Reports: No Symptoms Psychiatric: Reports: No Symptoms - General Info Date of Service: 12/29/19 - Patient Data Vital Signs - Most Recent: Last Vital Signs Temp 36.7 C 12/29/19 07:45 Pulse 86 12/29/19 07:45 Resp 16 12/29/19 07:45 BP 128/81 12/29/19 07:45 Pulse Ox 95 12/29/19 07:45 Weight - Most Recent: 73.028 kg I&O - Last 24 Hours: Intake & Output 12/28/19 12/29/19 12/29/19 22:59 06:59 14:59 Output Total 1550 Balance -1550 Med Orders - Current: Current Medications Hydrocodone Bitart/Acetaminophen ([place] 325-5 Mg) 1 tab PO Q4H PRN PRN Reason: Pain (moderate 4-6) Last Admin: 12/27/19 23:22 Dose: 1 tab Documented by: Bisacodyl (Dulcolax) 10 mg RECTAL ONETIME PRN PRN Reason: Constipation Diphenhydramine HCl (Benadryl) 25 mg IVPUSH Q6H PRN PRN Reason: Itching or Nausea Docusate Sodium (Colace) 100 mg PO BID [facility] Last Admin: 12/28/19 21:41 Dose: 100 mg Documented by: Emollient Ointment (Lansinoh Hpa) 0 gm TOP ASDIRECTED PRN PRN Reason: Sore Nipples Lactated Ringer's (Ringers, Lactated) 1,000 mls @ 999 mls/hr IV ASDIRECTED [facility] Last Admin: 12/27/19 17:50 Dose: 999 mls/hr Documented by: Lactated Ringer's (Ringers, Lactated) 1,000 mls @ 500 mls/hr IV BOLUS [facility] Oxytocin/Sodium Chloride (Oxytocin 30 Unit/500 Ml-Ns) 30 unit in 500 mls @ 250 mls/hr IV TITRATE MICHAELA Lactated Ringer's (Ringers, Lactated) 1,000 mls @ 500 mls/hr IV BOLUS MICHAELA Last Admin: 12/27/19 18:59 Dose: 500 mls/hr Documented by: Oxytocin/Sodium Chloride (Oxytocin 30 Unit/500 Ml-Ns) 30 unit in 500 mls @ 250 mls/hr IV TITRATE MICHAELA Lactated Ringer's (Ringers, Lactated) 1,000 mls @ 125 mls/hr IV ASDIRECTED MICHAELA Last Admin: 12/28/19 04:21 Dose: 125 mls/hr Documented by: Tranexamic Acid 1,000 mg/ (Sodium Chloride) 110 mls @ 660 mls/hr IV ONETIME PRN PRN Reason: Bleeding Ibuprofen (Motrin) 800 mg PO Q8H PRN PRN Reason: mild pain or fever Last Admin: 12/29/19 04:44 Dose: 800 mg Documented by: Methylergonovine Maleate (Methergine) 0.2 mg IM ONETIME PRN PRN Reason: Excessive Vaginal Bleeding Metoclopramide HCl (Reglan) 10 mg IVPUSH Q6H PRN PRN Reason: Nausea/Vomiting Misoprostol (Cytotec) 1,000 mcg RECTAL ONETIME PRN PRN Reason: excessive bleeding Oxycodone/Acetaminophen (Percocet 325-5 Mg) 1 tab PO ONETIME PRN PRN Reason: Pain (moderate 4-6) Oxytocin (Pitocin) 10 unit IM ASDIRECTED PRN PRN Reason: Excessive Vaginal Bleeding Simethicone (Simethicone) 80 mg PO Q4H PRN PRN Reason: Gas Last Admin: 12/28/19 02:29 Dose: 80 mg Documented by: Sodium Chloride (Saline Flush) 10 ml FLUSH ASDIRECTED PRN PRN Reason: Keep Vein Open Sodium Chloride (Saline Flush) 2.5 ml FLUSH ASDIRECTED PRN PRN Reason: Keep Vein Open Sodium Chloride (Normal Saline) 10 ml IV ASDIRECTED PRN PRN Reason: IV Use Sodium Chloride (Saline Flush) 10 ml FLUSH ASDIRECTED PRN PRN Reason: Keep Vein Open Sodium Chloride (Saline Flush) 2.5 ml FLUSH ASDIRECTED PRN PRN Reason: Keep Vein Open Sodium Chloride (Normal Saline) 10 ml IV ASDIRECTED PRN PRN Reason: IV Use Discontinued Medications Betamethasone Acet/Betameth SodPhos (Celestone Soluspan 6 Mg/Ml) Confirm Administered Dose 30 mg .ROUTE .STK-MED ONE Stop: 12/27/19 18:07 Last Admin: 12/27/19 21:29 Dose: Not Given Documented by: Betamethasone Acet/Betameth SodPhos (Celestone Soluspan 6 Mg/Ml) 12 mg IM ONETIME ONE Stop: 12/27/19 18:10 Last Admin: 12/27/19 18:22 Dose: 12 mg Documented by: Citric Acid/Sodium Citrate (Bicitra Solution) 30 ml PO ONETIME ONE Stop: 12/27/19 18:16 Citric Acid/Sodium Citrate (Bicitra Solution) 30 ml PO ONETIME ONE Stop: 12/27/19 18:17 Ephedrine Sulfate (Ephedrine Sulfate) Confirm Administered Dose 100 mg .ROUTE .STK-MED ONE Stop: 12/27/19 18:39 Fentanyl (Sublimaze) 50 mcg IVPUSH Q5M PRN PRN Reason: Pain (severe 7-10) Stop: 12/28/19 19:04 Cefazolin Sodium/Dextrose 2 gm (/ Premix) 50 mls @ 100 mls/hr IV ONETIME ONE Stop: 12/27/19 18:45 Last Admin: 12/27/19 21:29 Dose: Not Given Documented by: Azithromycin 500 mg/ Sodium (Chloride) 250 mls @ 250 mls/hr IV ONETIME ONE Stop: 12/27/19 19:24 Last Admin: 12/27/19 21:34 Dose: Not Given Documented by: Acetaminophen (Ofirmev) Confirm Administered Dose 100 mls @ as directed .ROUTE .STK-MED ONE Stop: 12/27/19 18:30 Last Admin: 12/27/19 21:29 Dose: Not Given Documented by: Ketorolac Tromethamine (Toradol) 30 mg IVPUSH Q6H MICHAELA Stop: 12/28/19 21:31 Last Admin: 12/28/19 22:15 Dose: 30 mg Documented by: Morphine Sulfate (Duramorph Pf) Confirm Administered Dose 10 mg .ROUTE .STK-MED ONE Stop: 12/27/19 18:42 Nalbuphine HCl (Nubain) 2.5 mg IVPUSH Q3H PRN PRN Reason: Pruritis Stop: 12/28/19 19:04 Octyl Cyanoacrylate (Dermabond Advance) Confirm Administered Dose 1 applic .ROUTE .STK-MED ONE Stop: 12/27/19 20:15 Oxytocin (Pitocin) Confirm Administered Dose 30 unit .ROUTE .STK-MED ONE Stop: 12/27/19 18:39 Propofol (Diprivan 20 Ml) Confirm Administered Dose 200 mg .ROUTE .STK-MED ONE Stop: 12/27/19 18:32 - Interaction Infant Disposition, : Not Applicable Infant Feeding: Other (see below) (baby in NICU in [place], planning to bottle feed.) - Recovery Exam Fundal Tone: Firm Fundal Level: At Umbilicus Fundal Placement: Midline Lochia Amount: Scant Lochia Color: Rubra/Red Perineum Description: Intact, Minimal Bruising/Swelling Episiotomy/Laceration: None Bladder Status: Voiding Urinary Elimination: Voided - Exam General: Alert, Oriented Lungs: Normal Respiratory Effort GI/Abdominal Exam: Soft, Non-Tender, No Distention Extremities: Normal Inspection, No Pedal Edema Wound/Incisions: Healing Well Neurological: No New Focal Deficit - Problem List Review Problem List Initiated/Reviewed/Updated: Yes - Assessment Assessment:: 29 year old POD2 s/p repeat LTCS due to labor. Pain is well controlled, baby is stable in NICU in [place]. She would like to be discharged to home today and will travel to [place] tomorrow to see baby. - Plan Plan:: -Discharge today. Discharge instructions reviewed.
[2019-12-29] MEDS: Acetaminophen/HYDROcodone 325-5 MG Tab PO PRN (10:13)
[2019-12-29] MEDS: Docusate Sodium 100 MG Cap PO SCH (10:14)
== END 2019-12-29 11:15 | disposition home or self-care (01) | DRG 786 ==
LOC: MW.OB 16:55 → MW.OBCHECK 16:55 → MW.OB 18:16 → MW.OBCHECK 18:16 → MW.OB 23:00
PROVIDERS: ADMIT Obstetrics & Gynecology; ATTEND Obstetrics & Gynecology
PROC: 10D00Z1 Extraction of Products of Conception, Low, Open Approach (ICD-10-PCS; principal; 2019-12-27)
DX: O34.211 Maternal care for low transverse scar from previous cesarean delivery (principal); O60.14X0 Preterm labor third trimester with preterm delivery third trimester, not applicable or unspecified; Z37.0 Single live birth; O99.284 Endocrine, nutritional and metabolic diseases complicating childbirth; E03.9 Hypothyroidism, unspecified; O99.214 Obesity complicating childbirth; E66.9 Obesity, unspecified; Z20.828 Contact with and (suspected) exposure to other viral communicable diseases; O34.03 Maternal care for unspecified congenital malformation of uterus, third trimester; Q51.28 Other and unspecified doubling of uterus; Z3A.34 34 weeks gestation of pregnancy
CPT/HCPCS: 36415; 59025; 85014; 85018; 85027; 86592; 86850; 86900; 86901; 87081; A9270-GY; J0702; J1885; J2270; J2590; J2704; J7120; U0002